=== PATIENT | male | born 1995 | race Caucasian/White ===

== ENCOUNTER → 2022-05-28 | Outpatient (CLI) | payer BC, SELFPAY ==
--- NOTE | 2022-05-28 11:58 | ECHOD_ITS ---
Reason For Study: Palpitations Procedure This was a 2D Doppler, Color Flow transthoracic echocardiogram. Exam performed in department. Left Ventricle Normal LV size. Left ventricular systolic function is normal. The estimated ejection fraction is 55 %. Normal diastology for age. No regional wall motion abnormalities noted. Right Ventricle Normal RV size. Normal systolic function. Atria Normal left atrium. Normal right atrium. Mitral Valve Normal mitral valve. Tricuspid Valve Normal tricuspid valve. Mild tricuspid valve insufficiency. Pulmonary artery systolic pressure is 23 mmHg. Aortic Valve Normal aortic valve. Trisinus/trileaflet aortic valve. Pulmonic Valve Normal pulmonic valve. Great Vessels Normal aortic root. The pulmonary artery is normal size. Normal inferior vena cava. Pericardium/Pleural No pericardial effusion. MMode/2D Measurements & Calculations LVIDd: 4.5 cm IVSd: 1.1 cm Ao root diam: 3.2 cm LVIDs: 3.0 cm LVPWd: 0.97 cm LA dimension: 2.8 cm RVDd: 3.1 cm FS: 34.2 % LAV(MOD-sp4): 30.3 ml LA A4 area: 14.2 cm2 RA A4 area: 14.0 cm2 Time Measurements MV dec time: 0.18 sec Doppler Measurements & Calculations MV E max grey: 80.7 cm/sec Lat Peak E' Grey: 19.6 cm/sec Med Peak E' Grey: 17.0 cm/sec MV A max grey: 46.7 cm/sec E/E' lat: 4.1 E/E' med: 4.7 MV E/A: 1.7 MV V2 max: 89.3 cm/sec MV dec slope: 455.0 cm/sec2 Ao V2 max: 123.4 cm/sec MV max P.2 mmHg Ao max P.1 mmHg MV V2 mean: 48.0 cm/sec MV mean P.1 mmHg MV V2 VTI: 26.5 cm LV V1 max: 115.9 cm/sec PA V2 max: 90.2 cm/sec TR max grey: 225.9 cm/sec LV V1 max P.4 mmHg TR max P.4 mmHg ECHO/Echo Complete Interpretation Summary Normal LV size. Left ventricular systolic function is normal. The estimated ejection fraction is 55 %. Pulmonary artery systolic pressure is 23 mmHg. Structurally normal valves. Ordering Physician: Tristan Cash Referring Physician: Tristan Cash Performed By: Angel Szymanski RCS
--- NOTE | 2022-05-29 07:07 | STRESSREP ---
Stress Test Report Exercise stress test. 26-year-old man with a history of cardiac dysrhythmia Stress protocol: Resting EKG demonstrates normal sinus rhythm with a rate of 55 bpm resting blood pressure is 110/72 mmHg. The patient exercised according to the regular [facility] protocol for a total duration of 12 minutes attaining a maximum heart rate of 184 bpm which was 95% of maximum predicted heart rate; the maximum workload was 13.7 metabolic equivalents. At rest there were no ST or T wave changes noted to suggest ischemia and at peak exercise upsloping ST changes only were noted which did not meet the criteria for ischemia. No clinical angina was noted the test was terminated due to the target heart rate being achieved/fatigue. The peak blood pressure was 178/88 mmHg. Rate-pressure product was 32,700. Conclusion: Normal exercise stress test at a high workload with no chest pain or arrhythmias noted.
== END | disposition home or self-care (01) ==
LOC: CVS 11:57
PROVIDERS: PCP Nurse Practitioner Family; Referring Provider Internal Medicine Cardiovascular Disease; Visit Provider Internal Medicine Cardiovascular Disease
DX: R00.2 Palpitations (principal); R00.0 Tachycardia, unspecified; I49.9 Cardiac arrhythmia, unspecified
CPT/HCPCS: 93017; 93306